=== PATIENT | male | born 1990 | race Caucasian/White ===

== ENCOUNTER 2017-04-28 21:19 | Emergency (ER) | payer OTHER ==
[~2017-04-28] VITALS: Ht 177.8 cm; Wt 95.2 kg
[2017-04-28] MEDS ORDERED: PREDNISONE20 MG PO (23:27)
[2017-04-28] MEDS ORDERED: HYDROXYZINE HCL25 MG PO (23:27)
== END 2017-04-28 23:49 | disposition home or self-care (01) ==
LOC: ED 21:19
DX: L50.9 Urticaria, unspecified (principal)
CPT/HCPCS: 96372; 99283; J1200; J7512